=== PATIENT | female | born 1985 | race Caucasian/White ===

== ENCOUNTER 2019-11-11 20:03 | Emergency (ER) | payer OTHER ==
[~2019-11-11] VITALS: Ht 165.1 cm; Wt 70.3 kg
[~2019-11-11 20:03] MED LIST: LORPSEER24 PO; RXHYDACE PO; SODCHL.65S
== END 2019-11-11 21:51 | disposition home or self-care (01) ==
LOC: ER 20:03
DX: S93.402A Sprain of unspecified ligament of left ankle, initial encounter (principal); F17.210 Nicotine dependence, cigarettes, uncomplicated; X58.XXXA Exposure to other specified factors, initial encounter
CPT/HCPCS: 73610; 99283